=== PATIENT | female | born 1995 | race Caucasian/White ===

== ENCOUNTER 2016-11-08 20:27 | Emergency (ER) | payer OTHER ==
[~2016-11-08] VITALS: Ht 162.6 cm; Wt 39.1 kg
[2016-11-08 20:30] VITALS: BP 125/75; PULSE 90; TEMP 99.1
[2016-11-08] MEDS ORDERED: CEPHALEXIN500 M1 PO (20:35)
== END 2016-11-08 21:33 | disposition home or self-care (01) ==
LOC: COL.ER 20:27
DX: S80.812A Abrasion, left lower leg, initial encounter (principal); L03.116 Cellulitis of left lower limb; W19.XXXA Unspecified fall, initial encounter